=== PATIENT | female | born 1950 | race Caucasian/White ===

== ENCOUNTER 2021-03-22 16:52 | Emergency (ER) | payer OTHER ==
[2021-03-22] MEDS ORDERED: FLEXERIL5 MG PO (20:59)
[2021-03-22] MEDS ORDERED: NORCO 5-325 TA1 EACH PO (20:59)
== END 2021-03-22 21:15 | disposition home or self-care (01) ==
LOC: FER 16:52
DX: M54.2 Cervicalgia (principal); M25.511 Pain in right shoulder; R51.9 Headache, unspecified; E11.9 Type 2 diabetes mellitus without complications; I10 Essential (primary) hypertension; E78.5 Hyperlipidemia, unspecified; Z88.2 Allergy status to sulfonamides; Z79.84 Long term (current) use of oral hypoglycemic drugs; Z79.82 Long term (current) use of aspirin; Z79.899 Other long term (current) drug therapy; V49.40XA Driver injured in collision with unspecified motor vehicles in traffic accident, initial encounter
CPT/HCPCS: 70450; 72125